=== PATIENT | male | born 1965 | race Caucasian/White ===

== ENCOUNTER 2017-12-27 23:10 | Emergency (ER) | payer OTHER ==
[~2017-12-27] VITALS: Ht 177.8 cm; Wt 136.1 kg
[2017-12-27] MEDS ORDERED: CALCIUM CHLOR(10%) 100MG/ML 10ML SYRINGE IV ONE (23:11)
[2017-12-27] MEDS ORDERED: SODIUM BICARBONATE 8.4% INJ 50ML SYRINGE IV ONE (23:11)
[2017-12-27] MEDS ORDERED: EPINEPHrine HCL 1 MG/10 ML SYRG IV ONE (23:11)
[2017-12-27] MEDS ORDERED: EPINEPHrine HCL 1 MG/10 ML SYRG ONE (23:30)
== END 2017-12-28 04:10 | disposition expired ==
LOC: ER 23:10 → EDBD 23:10 → ER 12-28 04:10
DX: I46.9 Cardiac arrest, cause unspecified (principal); I10 Essential (primary) hypertension; Z85.038 Personal history of other malignant neoplasm of large intestine
CPT/HCPCS: 92950; 99285; J0171